=== PATIENT | female | born 1940 | race Caucasian/White ===

== ENCOUNTER 2022-04-14 16:12 | Emergency (ER) | payer MEDICARE ==
--- NOTE | 2022-04-14 17:02 | XRAY ---
Indication: Swollen legs. CHF. Known left shoulder fracture. Comparison: None Portable chest inflated and clear. Heart not enlarged. Bony thorax intact with osteopenia and mildly displaced left humeral neck fracture.
[2022-04-14 17:06] LABS: Absolute Neutrophil Ct (ANC) 4.29 x10^3/uL (1.4-6.9); Basophil (Absolute #) 0.05 x10^3/uL (0-0.4); Eosinophil % 4.3 % (0.00-5.0); Eosinophil (Absolute #) 0.29 x10^3/uL (0-0.5); Hematocrit 38.6 % (35-47); Hemoglobin 12.4 g/dL (12.0-16.0); Lymphocyte (Absolute #) 1.44 x10^3/uL (1.0-4.6); Lymphocytes % 21.2 % (24.0-44.0); Mean Cell Volume 98.7 fL (78-100); Mean Corpuscular Hemoglobin 31.7 pg (26-32); Mean Corpuscular Hgb Concent. 32.1 g/dL (32-36); Mean Platelet Volume 9.6 fL (7.5-11.0); Monocyte (Absolute #) 0.69 x10^3/uL (0.0-1.3); Monocytes % 10.2 % (0.0-12.0); Neutrophil % 63.3 % (36.0-66.0); Platelet Count 275 x10^3/uL (150-450); Red Blood Count 3.91 x10^6/uL (4.1-5.4); White Blood Count 6.8 x10^3/uL (4.0-10.5)
[2022-04-14 17:27] LABS: Potassium 3.9 mmol/L (3.5-5.1)
[2022-04-14 17:34] LABS: ALBUMIN 3.6 g/dL (3.5-5.0); ALKALINE PHOSPHATASE 103 U/L (38-126); BLOOD UREA NITROGEN 16 mg/dL (7-17); CHLORIDE 107 mmol/L (98-107); Calcium 8.7 mg/dL (8.4-10.2); Carbon Dioxide 25 mmol/L (22-30); EST GLOMERULAR FILTRATION RATE > 60.0 ML/MIN; Glucose 116 mg/dL (74-106); NT PRO BNP 477 pg/mL (0-1800); SGOT/AST 31 U/L (14-36); SGPT/ALT 32 U/L (0-35); SODIUM 139 mmol/L (137-145); Total Protein 6.6 g/dL (6.3-8.2)
--- NOTE | 2022-04-14 17:34 | XRAY ---
Indication: Leg swelling. Two-dimensional sonogram and color Doppler imaging of the major venous vessels of the left and right leg performed. Comparison: None No thrombus seen in the examined deep venous vessels of the left and right leg including greater saphenous vein. Veins demonstrate normal compressibility. Venous waveforms are normal with and without augmentation. Impression: Left and right legs negative for DVT. Comment: Preliminary report was given.
[2022-04-14 17:44] LABS: ANION GAP 10.9 MEQ/L (5-15)
[2022-04-14 18:27] VITALS: BP 148/65; PULSE 58; O2SAT 96
--- NOTE | 2022-04-14 18:31 | ERPHSYRPT ---
- History of Present Illness Time Seen by Provider: 04/14/22 16:18 Source: patient, family Exam Limitations: no limitations Patient Subjective Stated Complaint: BLE swelling Triage Nursing Assessment: Patient brought into ED per w/c and transferred to bed with assist of 1. Patient A+O X 2, disoriented to time. Patient's daughter reports increased swelling to BLE. Patient complains of left shoulder pain 5/10 , but has current fx to left shoulder. BLE noted to have 2+Pitting edema. Physician History: 81 years old female with multiple medical problems including TBI few years ago, dementia, atrial fibrillation on Xarelto, history of pulmonary embolism, frequent falls with recent fracture left shoulder presented in the ER with bilateral lower extremity swelling. Patient having swelling both lower extremity for quite some time which is lately getting worse and causing off-and-on dull aching pain. Family is worried about her having DVT. No fever or chills reported. Denies any fall or trauma to the legs. She is taking Lasix which does not seem working. Denies any chest pain palpitations or shortness of breath. Timing/Duration: week(s), gradual onset, worse Severity: moderate Modifying Factors: Improves With: nothing Associated Symptoms: denies symptoms Allergies/Adverse Reactions: Penicillins Allergy (Verified 04/14/22 16:18) Hx Influenza Vaccination/Date Given: No Hx Pneumococcal Vaccination/Date Given: No Immunizations Up to Date: Yes Travel Risk - International Travel Have you traveled outside of the country in past 3 weeks: No - Coronavirus Screening Are you exhibiting any of the following symptoms?: No Close contact with a COVID-19 positive Pt in past 14-21 Days: No - Vaccine Status Have you recieved a Covid-19 vaccination: Yes 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 - Vaccination Dates Date of 2cond Vaccination (if applicable): na - Review of Systems Constitutional: No Symptoms Eyes: No Symptoms Ears, Nose, & Throat: No Symptoms Respiratory: No Symptoms Cardiac: Edema Abdominal/Gastrointestinal: No Symptoms Genitourinary Symptoms: No Symptoms Musculoskeletal: No Symptoms Skin: No Symptoms Neurological: No Symptoms Psychological: No Symptoms Endocrine: No Symptoms Hematologic/Lymphatic: No Symptoms Immunological/Allergic: No Symptoms - Past Medical History Neurological History: Alzheimer's Disease, Dementia, Other ENT History: No Pertinent History Cardiac History: Arrhythmia, Deep Vein Thrombosis, Hypertension Respiratory History: No Pertinent History Endocrine Medical History: Hypothyroidism Musculoskeletal History: No Pertinent History GI Medical History: No Pertinent History History: No Pertinent History Psycho-Social History: No Pertinent History Female Reproductive Disorders: No Pertinent History Other Medical History: 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 frequent falls - Past Surgical History Past Surgical History: Yes Neuro Surgical History: No Pertinent History Cardiac: No Pertinent History Respiratory: No Pertinent History Gastrointestinal: No Pertinent History Genitourinary: No Pertinent History Musculoskeletal: Orthopedic Surgery Female Surgical History: Other Other Surgical History: Right ovary removed. Right leg - Social History Smoking Status: Never smoker Exposure to second hand smoke: No Drug Use: none Patient Lives Alone: No - Nursing Vital Signs Nursing Vital Signs: Initial Vital Signs Temperature 97.4 F 04/14/22 16:19 Pulse Rate 56 L 04/14/22 16:19 Respiratory Rate 18 04/14/22 16:19 Blood Pressure 139/65 04/14/22 16:19 O2 Sat by Pulse Oximetry 97 04/14/22 16:19 Pain Scale Pain Intensity 5 - Physical Exam General Appearance: no apparent distress, alert Eye Exam: PERRL/EOMI Ears, Nose, Throat Exam: normal ENT inspection, pharynx normal Neck Exam: normal inspection, full range of motion Respiratory Exam: normal breath sounds, lungs clear Cardiovascular Exam: regular rate/rhythm, normal heart sounds, edema (2+ pitting edema bilateral) Gastrointestinal/Abdomen Exam: soft, normal bowel sounds, No tenderness Back Exam: normal inspection, normal range of motion Neurologic Exam: alert, oriented x 3, cooperative, home performance consultant II-XII nml as tested Skin Exam: normal color SpO2 Interpretation: normal SpO2: 96 O2 Delivery: Room Air - Course EKG Interpreted by Me: RATE ([id number]), Sinus Scott, NORMAL AXIS, NORMAL INTERVALS, Q- wave Ordered Tests: Active Orders 24 hr Category Date Time Status CHEST 1 VIEW (PORTABLE) Stat Exams 04/14/22 16:37 Completed VENOUS BILATERAL EXTREMITY [US] Stat Exams 04/14/22 16:37 Completed CBC W DIFF Stat Lab 04/14/22 15:50 Completed CMP Stat Lab 04/14/22 15:50 Completed NT PRO BNP Stat Lab 04/14/22 15:50 Completed TROPONIN Q4H Lab 04/14/22 15:50 Completed Lab/Rad Data: Laboratory Result Diagrams 04/14/22 15:50 04/14/22 15:50 Laboratory Results 04/14/22 04/14/22 04/14/22 Range/Units 15:50 15:50 15:50 WBC 6.8 (4.0-10.5) x10^3/uL RBC 3.91 L (4.1-5.4) x10^6/uL Hgb 12.4 (12.0-16.0) g/dL Hct 38.6 (35-47) % MCV 98.7 (78-100) fL MCH 31.7 (26-32) pg MCHC 32.1 (32-36) g/dL RDW 15.0 H (11.5-14.0) % Plt Count 275 (150-450) x10^3/uL MPV 9.6 (7.5-11.0) fL Gran % 63.3 (36.0-66.0) % Immature Gran % (Auto) 0.3 (0.00-0.4) % Nucleat RBC Rel Count 0.0 (0.00-0.1) % Eos # (Auto) 0.29 (0-0.5) x10^3/uL Immature Gran # (Auto) 0.02 (0.00-0.03) x10^3u/L Absolute Lymphs (auto) 1.44 (1.0-4.6) x10^3/uL Absolute Monos (auto) 0.69 (0.0-1.3) x10^3/uL Absolute Nucleated RBC 0.00 (0.00-0.01) x10^3u/L Lymphocytes % 21.2 L (24.0-44.0) % Monocytes % 10.2 (0.0-12.0) % Eosinophils % 4.3 (0.00-5.0) % Basophils % 0.7 (0.0-0.4) % Absolute Granulocytes 4.29 (1.4-6.9) x10^3/uL Basophils # 0.05 (0-0.4) x10^3/uL Sodium 139 (137-145) mmol/L Potassium 3.9 (3.5-5.1) mmol/L Chloride 107 (98-107) mmol/L Carbon Dioxide 25 (22-30) mmol/L Anion Gap 10.9 (5-15) MEQ/L BUN 16 (7-17) mg/dL Creatinine 0.90 (0.52-1.04) mg/dL Estimated GFR > 60.0 ML/MIN Glucose 116 H (74-106) mg/dL Calcium 8.7 (8.4-10.2) mg/dL Total Bilirubin 0.50 (0.2-1.3) mg/dL AST 31 (14-36) U/L ALT 32 (0-35) U/L Alkaline Phosphatase 103 (38-126) U/L Troponin I < 0.012 (0.000-0.034) ng/mL NT-Pro-B Natriuret Pep 477 (0-1800) pg/mL Serum Total Protein 6.6 (6.3-8.2) g/dL Albumin 3.6 (3.5-5.0) g/dL - Progress Progress: unchanged Progress Note: 04/14/22 18:29 81 years old is evaluated for bilateral lower extremity swelling. Bilateral lower extremity duplex is negative for DVT. All her baseline work-up was grossly unremarkable. Swelling could be secondary to venous stasis, valve failure versus lymphedema versus CHF although BNP is normal, she is on Lasix, recommended compression stocking, leg elevation, taking Lasix twice a day for next few days and outpatient follow-up. Discussed signs symptoms of worsening needing return to ER which patient/family seem understanding. Counseled pt/family regarding: lab results, diagnosis, need for follow-up, rad results - Departure Departure Disposition: Home Clinical Impression: Bilateral lower extremity edema Condition: Stable Critical Care Time: No Referrals: AMY ROD [Primary Care Provider] - Follow Up with PCP/3 days Instructions: Dependent Edema (DC), Lymphedema (DC) Additional Instructions: Keep your legs elevated. Use compression stocking. Low-salt diet. Take an extra dose of Lasix every other day for next 1 week. Follow-up with primary care for reevaluation. Return to ER for increasing lower extremity swelling or if having chest pain palpitations or shortness of breath.
== END 2022-04-14 18:48 | disposition home or self-care (01) ==
LOC: ED 16:12
DX: R60.0 Localized edema (principal); M79.89 Other specified soft tissue disorders; I48.91 Unspecified atrial fibrillation; I10 Essential (primary) hypertension; Z79.01 Long term (current) use of anticoagulants; Z86.711 Personal history of pulmonary embolism; R29.6 Repeated falls
CPT/HCPCS: 36415; 71045; 80053; 83880; 84484; 85025; 93970; 99283

== ENCOUNTER 2022-05-17 18:34 | Observation (INO) | payer MEDICARE ==
[2022-05-17] MEDS ORDERED: Sodium Chloride 0.9% 1000 ML 1,000 ML IV SCH (19:15)
[2022-05-17] MEDS ORDERED: Sodium Chloride 0.9% 1000 ML 1,000 ML ONE (19:34)
[2022-05-17 20:15] LABS: Absolute Neutrophil Ct (ANC) 6.95 x10^3/uL (1.4-6.9); Basophil (Absolute #) 0.04 x10^3/uL (0-0.4); Eosinophil % 1.5 % (0.00-5.0); Eosinophil (Absolute #) 0.14 x10^3/uL (0-0.5); Hematocrit 39.2 % (35-47); Hemoglobin 12.8 g/dL (12.0-16.0); Lymphocyte (Absolute #) 1.39 x10^3/uL (1.0-4.6); Lymphocytes % 14.5 % (24.0-44.0); Mean Cell Volume 95.6 fL (78-100); Mean Corpuscular Hemoglobin 31.2 pg (26-32); Mean Corpuscular Hgb Concent. 32.7 g/dL (32-36); Mean Platelet Volume 9.8 fL (7.5-11.0); Monocyte (Absolute #) 1.02 x10^3/uL (0.0-1.3); Monocytes % 10.6 % (0.0-12.0); Neutrophil % 72.6 % (36.0-66.0); Platelet Count 225 x10^3/uL (150-450); Red Cell Distribution Width 14.1 % (11.5-14.0); White Blood Count 9.6 x10^3/uL (4.0-10.5)
--- NOTE | 2022-05-17 20:31 | ERPHSYRPT ---
- History of Present Illness Time Seen by Provider: 05/17/22 18:45 Source: patient Exam Limitations: no limitations Patient Subjective Stated Complaint: Pt states "I was at home and my legs got weak and I started to sweat like crazy and now I am here." Triage Nursing Assessment: Pt presented alert and oriented X3, ski pwd. pt able to speak in clear full sentences pt in no apparent respiratory distress. PT looking around and moving all extremities. Physician History: Patient is a 81-year-old female presents to emergency department for evaluation of generalized weakness. Patient dates she was at home and became acutely weak. No falls. No trauma. Patient states she became diaphoretic. Symptoms lasted several minutes. However upon arrival to our ED patient felt much better. Upon arrival to our ED patient functioning at her baseline. No associated chest pain. No shortness of breath. No trauma. Symptoms are mild to moderate in intensity. No specific worsening improving factors. Patient voices no other complaints or concerns at this time. Of note patient has a history of traumatic brain injury. This has left patient with considerable cognitive deficit per family Portions of this note were created with voice recognition technology. There may be grammatical, spelling, punctuation or sound alike errors Timing/Duration: today Severity: moderate Modifying Factors: Improves With: nothing Associated Symptoms: denies symptoms Allergies/Adverse Reactions: Penicillins Allergy (Verified 04/14/22 16:18) Home Medications: Amiodarone HCl 100 mg PO DAILY 05/17/22 [History] Carvedilol 12.5 mg [Coreg 12.5 mg] 12.5 mg PO BID 05/17/22 [History] Donepezil HCl 10 mg [Aricept 10 MG] 10 mg PO HS 05/17/22 [History] Escitalopram Oxalate 20 mg PO DAILY 05/17/22 [History] Furosemide 20 mg [Lasix 20 mg] 20 mg PO DAILY 05/17/22 [History] Levothyroxine Sodium [Levothyroxine] 125 mcg PO DAILY 05/17/22 [History] Memantine HCl 10 mg PO DAILY 05/17/22 [History] Rivaroxaban [Xarelto] 20 mg PO DAILY 05/17/22 [History] Hx Tetanus, Diphtheria Vaccination/Date Given: Yes Hx Influenza Vaccination/Date Given: No Hx Pneumococcal Vaccination/Date Given: No Immunizations Up to Date: Yes Travel Risk - International Travel Have you traveled outside of the country in past 3 weeks: No - Coronavirus Screening Are you exhibiting any of the following symptoms?: No Close contact with a COVID-19 positive Pt in past 14-21 Days: No - Vaccine Status Have you recieved a Covid-19 vaccination: Yes Puncher: Moderna - Vaccination Dates Date of 2cond Vaccination (if applicable): na - Review of Systems Constitutional: No Symptoms, No Fever, No Chills Eyes: No Symptoms Ears, Nose, & Throat: No Symptoms Respiratory: No Symptoms, No Cough, No Dyspnea Cardiac: No Symptoms, No Chest Pain, No Edema, No Syncope Abdominal/Gastrointestinal: No Symptoms, No Abdominal Pain, No Nausea, No Vomiting, No Diarrhea Genitourinary Symptoms: No Symptoms, No Dysuria Musculoskeletal: No Symptoms, No Back Pain, No Neck Pain Skin: No Symptoms, No Rash Neurological: No Symptoms, No Dizziness, No Focal Weakness, No Sensory Changes Psychological: No Symptoms Endocrine: No Symptoms Hematologic/Lymphatic: No Symptoms Immunological/Allergic: No Symptoms All Other Systems: Reviewed and Negative - Past Medical History Pertinent Past Medical History: Yes Neurological History: Alzheimer's Disease, Dementia, TIA, Other ENT History: No Pertinent History Cardiac History: Arrhythmia, Deep Vein Thrombosis, Hypertension Respiratory History: No Pertinent History Endocrine Medical History: Hypothyroidism Musculoskeletal History: No Pertinent History GI Medical History: No Pertinent History History: No Pertinent History Psycho-Social History: No Pertinent History Female Reproductive Disorders: No Pertinent History Other Medical History: 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 frequent falls - Past Surgical History Past Surgical History: Yes Neuro Surgical History: No Pertinent History Cardiac: No Pertinent History Respiratory: No Pertinent History Gastrointestinal: No Pertinent History Genitourinary: No Pertinent History Musculoskeletal: Orthopedic Surgery Female Surgical History: Other Other Surgical History: Right ovary removed. Right leg - Social History Smoking Status: Never smoker Exposure to second hand smoke: No Drug Use: none Patient Lives Alone: No - Nursing Vital Signs Nursing Vital Signs: Initial Vital Signs Temperature 97.3 F 05/17/22 18:36 Pulse Rate 58 L 05/17/22 18:36 Respiratory Rate 20 05/17/22 18:36 Blood Pressure 130/66 05/17/22 18:36 O2 Sat by Pulse Oximetry 96 05/17/22 18:36 Pain Scale Pain Intensity 0 - Physical Exam General Appearance: no apparent distress, alert Eye Exam: PERRL/EOMI, eyes nml inspection Ears, Nose, Throat Exam: normal ENT inspection, TMs normal, pharynx normal, moist mucous membranes Neck Exam: normal inspection, non-tender, supple, full range of motion Respiratory Exam: normal breath sounds, lungs clear, airway intact, No respiratory distress Cardiovascular Exam: regular rate/rhythm, normal heart sounds, normal peripheral pulses Gastrointestinal/Abdomen Exam: soft, normal bowel sounds, No tenderness, No mass Back Exam: normal inspection, normal range of motion, No CVA tenderness, No vertebral tenderness Extremity Exam: normal inspection, normal range of motion, pelvis stable Neurologic Exam: alert, oriented x 3, cooperative, normal mood/affect, nml cerebellar function, nml station & gait, sensation nml, No motor deficits Skin Exam: normal color, warm, dry, No rash Lymphatic Exam: No adenopathy SpO2 Interpretation: normal SpO2: 96 O2 Delivery: Room Air - Course Nursing assessment & vital signs reviewed: Yes EKG Interpreted by Me: RATE ([id number]) - CT Exams Head CT Interpretation: Tele-radiologist Report (Nonacute senile brain) Ordered Tests: Active Orders 24 hr Category Date Time Status HEAD WITHOUT CONTRAST [CT] Stat Exams 05/17/22 19:07 Taken CBC W DIFF Stat Lab 05/17/22 20:10 Completed CMP Stat Lab 05/17/22 20:10 Completed MAGNESIUM Stat Lab 05/17/22 20:10 Completed TSH, 3RD Generation Stat Lab 05/17/22 20:10 Completed UA W/RFX CULTURE Stat Lab 05/17/22 20:43 Completed Transfer Order Routine Transfer 05/17/22 Ordered Medication Summary Generic Name Dose Route Start Last Admin Trade Name Freq PRN Reason Stop Dose Admin Sodium Chloride 1,000 mls @ 75 mls/hr 05/17/22 19:15 05/17/22 19:36 Sodium Chloride 0.9% 1000 Ml IV 06/16/22 19:14 75 mls/hr .[id number] DONNA Administration Lab/Rad Data: Laboratory Result Diagrams 05/17/22 20:10 05/17/22 20:10 Laboratory Results 05/17/22 05/17/22 05/17/22 Range/Units 20:43 20:30 20:10 WBC (4.0-10.5) x10^3/uL RBC (4.1-5.4) x10^6/uL Hgb (12.0-16.0) g/dL Hct (35-47) % MCV (78-100) fL MCH (26-32) pg MCHC (32-36) g/dL RDW (11.5-14.0) % Plt Count (150-450) x10^3/uL MPV (7.5-11.0) fL Gran % (36.0-66.0) % Immature Gran % (Auto) (0.00-0.4) % Nucleat RBC Rel Count (0.00-0.1) % Eos # (Auto) (0-0.5) x10^3/uL Immature Gran # (Auto) (0.00-0.03) x10^3u/L Absolute Lymphs (auto) (1.0-4.6) x10^3/uL Absolute Monos (auto) (0.0-1.3) x10^3/uL Absolute Nucleated RBC (0.00-0.01) x10^3u/L Lymphocytes % (24.0-44.0) % Monocytes % (0.0-12.0) % Eosinophils % (0.00-5.0) % Basophils % (0.0-0.4) % Absolute Granulocytes (1.4-6.9) x10^3/uL Basophils # (0-0.4) x10^3/uL Sodium 134 L (137-145) mmol/L Potassium 3.9 (3.5-5.1) mmol/L Chloride 104 (98-107) mmol/L Carbon Dioxide 23 (22-30) mmol/L Anion Gap 10.9 (5-15) MEQ/L BUN 13 (7-17) mg/dL Creatinine 0.79 (0.52-1.04) mg/dL Estimated GFR > 60.0 ML/MIN Glucose 106 (74-106) mg/dL Calcium 8.5 (8.4-10.2) mg/dL Magnesium 2.1 (1.6-2.3) mg/dL Total Bilirubin 0.60 (0.2-1.3) mg/dL AST 27 (14-36) U/L ALT 27 (0-35) U/L Alkaline Phosphatase 97 (38-126) U/L Serum Total Protein 6.7 (6.3-8.2) g/dL Albumin 3.6 (3.5-5.0) g/dL TSH 3rd Generation 1.980 (0.47-4.68) mIU/L Urinalys Dipstick Clnc MAIN LAB Urine Color YELLOW (YELLOW) Urine Appearance CLEAR (CLEAR) Urine pH 7.0 (5-6) Ur Specific [place] 1.015 (1.005-1.025) POC Urine Protein Conf NEGATIVE (Negative) Urine Ketones NEGATIVE (NEGATIVE) Urine Nitrite NEGATIVE (NEGATIVE) Urine Bilirubin NEGATIVE (NEGATIVE) Urine Urobilinogen 0.2 (0-1) mg/dL Urine Leukocytes NEGATIVE (NEGATIVE) Urine WBC (Auto) 0-2 (0-5) /HPF Urine RBC (Auto) NONE (0-2) /HPF U Epithel Cells (Auto) RARE (FEW) /HPF Urine Bacteria (Auto) NONE (NEGATIVE) /HPF Urine RBC NEGATIVE (0-5) Gary/ul Ur Culture Indicated? NO Urine Glucose NEGATIVE (NEGATIVE) mg/dL Influenza Type A Ag NEGATIVE (NEGATIVE) Influenza Type B Ag NEGATIVE (NEGATIVE) RSV (PCR) NEGATIVE (Negative) SARS-CoV-2 (PCR) NEGATIVE (NEGATIVE) 05/17/22 Range/Units 20:10 WBC 9.6 (4.0-10.5) x10^3/uL RBC 4.10 (4.1-5.4) x10^6/uL Hgb 12.8 (12.0-16.0) g/dL Hct 39.2 (35-47) % MCV 95.6 (78-100) fL MCH 31.2 (26-32) pg MCHC 32.7 (32-36) g/dL RDW 14.1 H (11.5-14.0) % Plt Count 225 (150-450) x10^3/uL MPV 9.8 (7.5-11.0) fL Gran % 72.6 H (36.0-66.0) % Immature Gran % (Auto) 0.4 (0.00-0.4) % Nucleat RBC Rel Count 0.0 (0.00-0.1) % Eos # (Auto) 0.14 (0-0.5) x10^3/uL Immature Gran # (Auto) 0.04 H (0.00-0.03) x10^3u/L Absolute Lymphs (auto) 1.39 (1.0-4.6) x10^3/uL Absolute Monos (auto) 1.02 (0.0-1.3) x10^3/uL Absolute Nucleated RBC 0.00 (0.00-0.01) x10^3u/L Lymphocytes % 14.5 L (24.0-44.0) % Monocytes % 10.6 (0.0-12.0) % Eosinophils % 1.5 (0.00-5.0) % Basophils % 0.4 (0.0-0.4) % Absolute Granulocytes 6.95 H (1.4-6.9) x10^3/uL Basophils # 0.04 (0-0.4) x10^3/uL Sodium (137-145) mmol/L Potassium (3.5-5.1) mmol/L Chloride (98-107) mmol/L Carbon Dioxide (22-30) mmol/L Anion Gap (5-15) MEQ/L BUN (7-17) mg/dL Creatinine (0.52-1.04) mg/dL Estimated GFR ML/MIN Glucose (74-106) mg/dL Calcium (8.4-10.2) mg/dL Magnesium (1.6-2.3) mg/dL Total Bilirubin (0.2-1.3) mg/dL AST (14-36) U/L ALT (0-35) U/L Alkaline Phosphatase (38-126) U/L Serum Total Protein (6.3-8.2) g/dL Albumin (3.5-5.0) g/dL TSH 3rd Generation (0.47-4.68) mIU/L Urinalys Dipstick Clnc Urine Color (YELLOW) Urine Appearance (CLEAR) Urine pH (5-6) Ur Specific [place] (1.005-1.025) POC Urine Protein Conf (Negative) Urine Ketones (NEGATIVE) Urine Nitrite (NEGATIVE) Urine Bilirubin (NEGATIVE) Urine Urobilinogen (0-1) mg/dL Urine Leukocytes (NEGATIVE) Urine WBC (Auto) (0-5) /HPF Urine RBC (Auto) (0-2) /HPF U Epithel Cells (Auto) (FEW) /HPF Urine Bacteria (Auto) (NEGATIVE) /HPF Urine RBC (0-5) Gary/ul Ur Culture Indicated? Urine Glucose (NEGATIVE) mg/dL Influenza Type A Ag (NEGATIVE) Influenza Type B Ag (NEGATIVE) RSV (PCR) (Negative) SARS-CoV-2 (PCR) (NEGATIVE) - Progress Progress: improved Progress Note: Patient reassessed. Neurologically patient at her baseline. CT head negative. Work-up essentially unremarkable. In light of patient's risk factors patient will be admitted to rule out TIA. Patient is on Xarelto. IV fluids infusing. Case discussed with Dr. Webber who accepts admission to observation. Plan of care discussed with patient. She agrees to admission at [facility] for further evaluation and treatment. Portions of this note were created with voice recognition technology. There may be grammatical, spelling, punctuation or sound alike errors 05/17/22 22:50 Counseled pt/family regarding: lab results, diagnosis, rad results - Departure Departure Disposition: Observation Clinical Impression: TIA (transient ischemic attack), Generalized weakness Condition: Stable Critical Care Time: No Referrals: AMY ROD [Primary Care Provider] - Follow up/PCP as directed
[2022-05-17 21:04] LABS: ALBUMIN 3.6 g/dL (3.5-5.0); ALKALINE PHOSPHATASE 97 U/L (38-126); ANION GAP 10.9 MEQ/L (5-15); BLOOD UREA NITROGEN 13 mg/dL (7-17); CHLORIDE 104 mmol/L (98-107); Calcium 8.5 mg/dL (8.4-10.2); Carbon Dioxide 23 mmol/L (22-30); Creatinine 1 0.79 mg/dL (0.52-1.04); EST GLOMERULAR FILTRATION RATE > 60.0 ML/MIN; Glucose 106 mg/dL (74-106); MAGNESIUM 2.1 mg/dL (1.6-2.3); Potassium 3.9 mmol/L (3.5-5.1); SGOT/AST 27 U/L (14-36); SGPT/ALT 27 U/L (0-35); SODIUM 134 mmol/L (137-145); Total Protein 6.7 g/dL (6.3-8.2)
[2022-05-17 21:14] LABS: INFLUENZA A NEGATIVE (NEGATIVE); INFLUENZA B NEGATIVE (NEGATIVE); RESPIRATORY SYNCTIAL VIRUS NEGATIVE (Negative); SARS-CoV-2 Xpert Express NEGATIVE (NEGATIVE)
[2022-05-17 21:15] LABS: Appearance CLEAR (CLEAR); Bilirubin NEGATIVE (NEGATIVE); Dipstick done @ ? MAIN LAB; Glucose NEGATIVE (NEGATIVE); Ketones NEGATIVE (NEGATIVE); Nitrite NEGATIVE (NEGATIVE); Protein,Urine Dip NEGATIVE (Negative); RBC NEGATIVE Ery/ul (0-5); Specific Gravity 1.015 (1.005-1.025); Urobilinogen 0.2 mg/dL (0-1)
[2022-05-17 21:24] LABS: Epithelial Cells RARE /HPF (FEW); Urine Cultured Indicated? NO; WBC 0-2 /HPF (0-5)
[2022-05-18] MEDS ORDERED: Senokot-S Tablet PO PRN (00:43)
[2022-05-18] MEDS ORDERED: MAALOX ES 30 ML UNIT DOSE PO PRN (00:43)
[2022-05-18] MEDS ORDERED: Sodium Chloride 0.9% 500 ML 500 ML IV SCH (00:43)
[2022-05-18] MEDS ORDERED: MILK OF MAGNESIA 30 ML PO PRN (00:43)
[2022-05-18] MEDS ORDERED: TYLENOL 325 MG PO PRN (00:43)
[2022-05-18] MEDS ORDERED: COREG 12.5 MG PO ONE (02:00)
[2022-05-18] MEDS ORDERED: Namenda 5 MG PO ONE (02:00)
[2022-05-18] MEDS: Sodium Chloride 0.9% 1000 ML 1,000 ML IV SCH (07:52)
--- NOTE | 2022-05-18 08:38 | XRAY ---
Indication: Acute mental status change. Weakness and dizziness. Multiple contiguous images obtained through the head without contrast. Comparison: None Age-appropriate global atrophy and moderate periventricular degenerative micro-ischemia bilaterally. Left and right external capsule demonstrates remote lacunar infarcts. No acute intracranial hemorrhage, abnormal extra-axial fluid collection, or mass effect. Fourth ventricle is midline without hydrocephalus. Bony calvarium intact. Visualized paranasal sinuses and mastoid air cells are clear. Impression: Nonacute senile brain with remote bilateral external capsule lacunar infarcts.
--- NOTE | 2022-05-18 11:20 | PCM.HP ---
History of Present Illness - Chief Complaint Chief Complaint: TIA History of Present Illness: is a delightful 81 year old female pt of Dr. Reich with hx TBI (with cognitive deficit), hx DVT, arrhythmia, HTN, hypothyroidism, and frequent falls who came in through ER with TIA. Hx is per pt, who is a somewhat difficult historian due to some memory deficits. per pt, she has been largely bedridden since a fall 4 mo ago (has frequent falls due to poor balance after accident about 4 yrs ago). Was getting off the toilet with assistance of her granddaughter, and she couldn't get her knees to "lock in" and sat down. [place] really hot. ER noted she had been diaphoretic. R arm post-vaccination(Covid) site was very painful at the time. She also felt disoriented, which is new for her. She was brought to ER where she appeared back to baseline. CT head was nonacute (remote bilat external capsule lacunar infarcts). Labs nonacute. Troponins neg x 2 so far. Chol 219, HDL 44 and LDL 143. 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 She just moved to [place] recently to live with her daughter (is her god daughter) and granddaughter (who is a health aide of some kind). Has [facility], per hospital staff. - Review of Systems Respiratory: Cough Cardiac: Edema (LE bilat, chronic) Genitourinary Symptoms: Incontinence (urinary, since her last fall) Neurological: Other (poor balance causing falls) All Other Systems: Reviewed and Negative (Per pt, but she does have some cognitive difficulties and is not oriented today.) Medications & Allergies Home Medications: Home Medication List Amiodarone HCl 100 mg PO DAILY 05/17/22 [History Confirmed 05/18/22] Carvedilol 12.5 mg [Coreg 12.5 mg] 12.5 mg PO BID 05/17/22 [History Confirmed 05/18/22] Escitalopram Oxalate 20 mg PO DAILY 05/17/22 [History Confirmed 05/18/22] Furosemide 20 mg [Lasix 20 mg] 20 mg PO DAILY PRN PRN 05/17/22 [History Confirmed 05/18/22] Levothyroxine Sodium [Levothyroxine] 125 mcg PO DAILY 05/17/22 [History Confirmed 05/18/22] Memantine HCl 10 mg PO BID 05/17/22 [History Confirmed 05/18/22] Rivaroxaban [Xarelto] 20 mg PO DAILY 05/17/22 [History Confirmed 05/18/22] Donepezil HCl [Aricept] 5 mg PO DAILY 05/18/22 [History Confirmed 05/18/22] Famotidine 20 mg PO DAILY 05/18/22 [History Confirmed 05/18/22] Allergies/Adverse Reactions: Allergies Allergy/AdvReac Type Severity Reaction Status Date / Time Penicillins Allergy Verified 05/18/22 00:57 - Past Medical History Past Medical History: Yes Neurological History: Alzheimer's Disease, Dementia, Other ENT History: No Pertinent History Cardiac History: Arrhythmia, Deep Vein Thrombosis, Hypertension Respiratory History: No Pertinent History Endocrine Medical History: Hypothyroidism Musculoskelatal History: Fractures GI Medical History: No Pertinent History History: No Pertinent History Pyscho-Social History: No Pertinent History Reproductive Disorders: No Pertinent History Comment: TBI with 42% cognitive loss , afib, frequent falls, left shoulder fx - Female History Are you now?: No - Past Surgical History Past Surgical History: Yes Neuro Surgical History: No Pertinent History Cardiac History: No Pertinent History Respiratory Surgery: No Pertinent History GI Surgical History: No Pertinent History Genitourinary Surgical Hx: No Pertinent History Musculskeletal Surgical Hx: Orthopedic Surgery Female Surgical History: Other Other Surgical History: Right ovary removed. Right leg - Social History Smoking Status: Never smoker Exposure to second hand smoke: No Alcohol: None Drug Use: none - Physical Exam Vital Signs: Vital Signs - 24 hr Temp Pulse Resp BP Pulse Ox 05/18/22 07:57 96 05/18/22 07:52 97.3 F 54 L 16 128/60 92 L 05/18/22 04:00 97.5 F 63 18 138/63 94 L 05/18/22 00:59 97.3 F 65 18 119/58 94 L 05/18/22 00:06 61 16 124/64 93 L 05/17/22 23:07 62 16 148/59 96 05/17/22 22:56 96 05/17/22 22:00 58 L 16 151/69 94 L 05/17/22 21:00 59 L 16 94 L 05/17/22 20:35 60 14 118/52 93 L 05/17/22 18:36 97.3 F 58 L 20 130/66 96 General Appearance: no apparent distress, other (oriented to self only; doesn't remember where she is, and month is June 2022.) Neurologic Exam: alert, cooperative, disoriented, other (CN II-XII intact bilat. strength 5/5 RUE, bilat LE. 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 Finger-nose wnl bilat.) Eye Exam: eyes nml inspection Ears, Nose, Throat Exam: dry mucous membranes Neck Exam: normal inspection Respiratory Exam: normal breath sounds, lungs clear, No crackles/rales, No rhonchi, No wheezing Cardiovascular Exam: regular rate/rhythm, normal heart sounds, No murmur, No edema Gastrointestinal/Abdomen Exam: soft, normal bowel sounds, No tenderness, No distention, No mass, No guarding, No rebound Back Exam: normal inspection, No rash Extremity Exam: normal inspection, No pedal edema, No swelling, No tenderness Skin Exam: normal color, warm, dry, No rash Results - Labs Lab/Micro Results: Lab Results-Last 24 Hours 05/17/22 05/17/22 05/17/22 Range/Units 20:10 20:10 20:30 WBC 9.6 (4.0-10.5) x10^3/uL RBC 4.10 (4.1-5.4) x10^6/uL Hgb 12.8 (12.0-16.0) g/dL Hct 39.2 (35-47) % MCV 95.6 (78-100) fL MCH 31.2 (26-32) pg MCHC 32.7 (32-36) g/dL RDW 14.1 H (11.5-14.0) % Plt Count 225 (150-450) x10^3/uL MPV 9.8 (7.5-11.0) fL Gran % 72.6 H (36.0-66.0) % Immature Gran % (Auto) 0.4 (0.00-0.4) % Nucleat RBC Rel Count 0.0 (0.00-0.1) % Eos # (Auto) 0.14 (0-0.5) x10^3/uL Immature Gran # (Auto) 0.04 H (0.00-0.03) x10^3u/L Absolute Lymphs (auto) 1.39 (1.0-4.6) x10^3/uL Absolute Monos (auto) 1.02 (0.0-1.3) x10^3/uL Absolute Nucleated RBC 0.00 (0.00-0.01) x10^3u/L Lymphocytes % 14.5 L (24.0-44.0) % Monocytes % 10.6 (0.0-12.0) % Eosinophils % 1.5 (0.00-5.0) % Basophils % 0.4 (0.0-0.4) % Absolute Granulocytes 6.95 H (1.4-6.9) x10^3/uL Basophils # 0.04 (0-0.4) x10^3/uL Sodium 134 L (137-145) mmol/L Potassium 3.9 (3.5-5.1) mmol/L Chloride 104 (98-107) mmol/L Carbon Dioxide 23 (22-30) mmol/L Anion Gap 10.9 (5-15) MEQ/L BUN 13 (7-17) mg/dL Creatinine 0.79 (0.52-1.04) mg/dL Estimated GFR > 60.0 ML/MIN Glucose 106 (74-106) mg/dL Calcium 8.5 (8.4-10.2) mg/dL Magnesium 2.1 (1.6-2.3) mg/dL Total Bilirubin 0.60 (0.2-1.3) mg/dL AST 27 (14-36) U/L ALT 27 (0-35) U/L Alkaline Phosphatase 97 (38-126) U/L Troponin I (0.000-0.034) ng/mL Serum Total Protein 6.7 (6.3-8.2) g/dL Albumin 3.6 (3.5-5.0) g/dL Triglycerides (30-150) mg/dL Cholesterol (50-200) mg/dL LDL Cholesterol (30-100) mg/dL HDL Cholesterol (40-60) mg/dL Heart Disease Risk Ratio TSH 3rd Generation 1.980 (0.47-4.68) mIU/L Urinalys Dipstick Clnc Urine Color (YELLOW) Urine Appearance (CLEAR) Urine pH (5-6) Ur Specific [place] (1.005-1.025) POC Urine Protein Conf (Negative) Urine Ketones (NEGATIVE) Urine Nitrite (NEGATIVE) Urine Bilirubin (NEGATIVE) Urine Urobilinogen (0-1) mg/dL Urine Leukocytes (NEGATIVE) Urine WBC (Auto) (0-5) /HPF Urine RBC (Auto) (0-2) /HPF U Epithel Cells (Auto) (FEW) /HPF Urine Bacteria (Auto) (NEGATIVE) /HPF Urine RBC (0-5) Gary/ul Ur Culture Indicated? Urine Glucose (NEGATIVE) mg/dL Influenza Type A Ag NEGATIVE (NEGATIVE) Influenza Type B Ag NEGATIVE (NEGATIVE) RSV (PCR) NEGATIVE (Negative) SARS-CoV-2 (PCR) NEGATIVE (NEGATIVE) 05/17/22 05/18/22 05/18/22 Range/Units 20:43 00:00 03:23 WBC (4.0-10.5) x10^3/uL RBC (4.1-5.4) x10^6/uL Hgb (12.0-16.0) g/dL Hct (35-47) % MCV (78-100) fL MCH (26-32) pg MCHC (32-36) g/dL RDW (11.5-14.0) % Plt Count (150-450) x10^3/uL MPV (7.5-11.0) fL Gran % (36.0-66.0) % Immature Gran % (Auto) (0.00-0.4) % Nucleat RBC Rel Count (0.00-0.1) % Eos # (Auto) (0-0.5) x10^3/uL Immature Gran # (Auto) (0.00-0.03) x10^3u/L Absolute Lymphs (auto) (1.0-4.6) x10^3/uL Absolute Monos (auto) (0.0-1.3) x10^3/uL Absolute Nucleated RBC (0.00-0.01) x10^3u/L Lymphocytes % (24.0-44.0) % Monocytes % (0.0-12.0) % Eosinophils % (0.00-5.0) % Basophils % (0.0-0.4) % Absolute Granulocytes (1.4-6.9) x10^3/uL Basophils # (0-0.4) x10^3/uL Sodium (137-145) mmol/L Potassium (3.5-5.1) mmol/L Chloride (98-107) mmol/L Carbon Dioxide (22-30) mmol/L Anion Gap (5-15) MEQ/L BUN (7-17) mg/dL Creatinine (0.52-1.04) mg/dL Estimated GFR ML/MIN Glucose (74-106) mg/dL Calcium (8.4-10.2) mg/dL Magnesium (1.6-2.3) mg/dL Total Bilirubin (0.2-1.3) mg/dL AST (14-36) U/L ALT (0-35) U/L Alkaline Phosphatase (38-126) U/L Troponin I < 0.012 (0.000-0.034) ng/mL Serum Total Protein (6.3-8.2) g/dL Albumin (3.5-5.0) g/dL Triglycerides 147 (30-150) mg/dL Cholesterol 219 H (50-200) mg/dL LDL Cholesterol 143 H (30-100) mg/dL HDL Cholesterol 44 (40-60) mg/dL Heart Disease Risk Ratio 5.0 TSH 3rd Generation (0.47-4.68) mIU/L Urinalys Dipstick Clnc MAIN LAB Urine Color YELLOW (YELLOW) Urine Appearance CLEAR (CLEAR) Urine pH 7.0 (5-6) Ur Specific [place] 1.015 (1.005-1.025) POC Urine Protein Conf NEGATIVE (Negative) Urine Ketones NEGATIVE (NEGATIVE) Urine Nitrite NEGATIVE (NEGATIVE) Urine Bilirubin NEGATIVE (NEGATIVE) Urine Urobilinogen 0.2 (0-1) mg/dL Urine Leukocytes NEGATIVE (NEGATIVE) Urine WBC (Auto) 0-2 (0-5) /HPF Urine RBC (Auto) NONE (0-2) /HPF U Epithel Cells (Auto) RARE (FEW) /HPF Urine Bacteria (Auto) NONE (NEGATIVE) /HPF Urine RBC NEGATIVE (0-5) Gary/ul Ur Culture Indicated? NO Urine Glucose NEGATIVE (NEGATIVE) mg/dL Influenza Type A Ag (NEGATIVE) Influenza Type B Ag (NEGATIVE) RSV (PCR) (Negative) SARS-CoV-2 (PCR) (NEGATIVE) 05/18/22 Range/Units 03:23 WBC (4.0-10.5) x10^3/uL RBC (4.1-5.4) x10^6/uL Hgb (12.0-16.0) g/dL Hct (35-47) % MCV (78-100) fL MCH (26-32) pg MCHC (32-36) g/dL RDW (11.5-14.0) % Plt Count (150-450) x10^3/uL MPV (7.5-11.0) fL Gran % (36.0-66.0) % Immature Gran % (Auto) (0.00-0.4) % Nucleat RBC Rel Count (0.00-0.1) % Eos # (Auto) (0-0.5) x10^3/uL Immature Gran # (Auto) (0.00-0.03) x10^3u/L Absolute Lymphs (auto) (1.0-4.6) x10^3/uL Absolute Monos (auto) (0.0-1.3) x10^3/uL Absolute Nucleated RBC (0.00-0.01) x10^3u/L Lymphocytes % (24.0-44.0) % Monocytes % (0.0-12.0) % Eosinophils % (0.00-5.0) % Basophils % (0.0-0.4) % Absolute Granulocytes (1.4-6.9) x10^3/uL Basophils # (0-0.4) x10^3/uL Sodium (137-145) mmol/L Potassium (3.5-5.1) mmol/L Chloride (98-107) mmol/L Carbon Dioxide (22-30) mmol/L Anion Gap (5-15) MEQ/L BUN (7-17) mg/dL Creatinine (0.52-1.04) mg/dL Estimated GFR ML/MIN Glucose (74-106) mg/dL Calcium (8.4-10.2) mg/dL Magnesium (1.6-2.3) mg/dL Total Bilirubin (0.2-1.3) mg/dL AST (14-36) U/L ALT (0-35) U/L Alkaline Phosphatase (38-126) U/L Troponin I < 0.012 (0.000-0.034) ng/mL Serum Total Protein (6.3-8.2) g/dL Albumin (3.5-5.0) g/dL Triglycerides (30-150) mg/dL Cholesterol (50-200) mg/dL LDL Cholesterol (30-100) mg/dL HDL Cholesterol (40-60) mg/dL Heart Disease Risk Ratio TSH 3rd Generation (0.47-4.68) mIU/L Urinalys Dipstick Clnc Urine Color (YELLOW) Urine Appearance (CLEAR) Urine pH (5-6) Ur Specific [place] (1.005-1.025) POC Urine Protein Conf (Negative) Urine Ketones (NEGATIVE) Urine Nitrite (NEGATIVE) Urine Bilirubin (NEGATIVE) Urine Urobilinogen (0-1) mg/dL Urine Leukocytes (NEGATIVE) Urine WBC (Auto) (0-5) /HPF Urine RBC (Auto) (0-2) /HPF U Epithel Cells (Auto) (FEW) /HPF Urine Bacteria (Auto) (NEGATIVE) /HPF Urine RBC (0-5) Gary/ul Ur Culture Indicated? Urine Glucose (NEGATIVE) mg/dL Influenza Type A Ag (NEGATIVE) Influenza Type B Ag (NEGATIVE) RSV (PCR) (Negative) SARS-CoV-2 (PCR) (NEGATIVE) - Radiology Impressions Radiology Exams & Impressions: Radiology Procedures Category Date Time Status HEAD WITHOUT CONTRAST [CT] Stat Exams 05/17/22 19:07 Completed MRI BRAIN W & W/O CONTRAST [MRI] Routine Exams 05/18/22 10:58 Ordered - Other Procedures and Tests Respiratory Therapy 05/19/22 05:00 EKG DAILY 05/20/22 05:00 EKG DAILY 05/21/22 05:00 EKG DAILY Assessment/Plan (1) TIA (transient ischemic attack) Current Visit: Yes Status: Acute Assessment & Plan: Likely. Her neuro exam was good aside from some weakness on the LUE. MRI brain. Code(s): G45.9 - TRANSIENT CEREBRAL ISCHEMIC ATTACK, UNSPECIFIED (2) Generalized weakness Current Visit: Yes Status: Acute Assessment & Plan: PT to consult. I am most concerned about how she will function at home after discharge. Not likely to leave before tomorrow. Code(s): R53.1 - WEAKNESS (3) Frequent falls Current Visit: Yes Status: Chronic Code(s): R29.6 - REPEATED FALLS (4) Traumatic brain injury Current Visit: Yes Status: Chronic Qualifiers: Encounter type: sequela Loss of consciousness presence/duration: with LOC of unspecified duration Qualified Code(s): S06.9X9S - Unspecified intracranial injury with loss of consciousness of unspecified duration, sequela Assessment & Plan: Hx of. has trouble word finding and memory issues. Code(s): S06.9XAA -
--- NOTE | 2022-05-18 13:15 | XRAY ---
Indication: Difficulty speaking and walking. TIA. Sagittal, coronal, and axial MRI brain performed using pre and post T1, T2, FLAIR, diffusion, and ADC sequences. 16 cc Dotarem contrast used. Comparison: None Age-appropriate global atrophy and moderate periventricular degenerative micro-ischemia signal bilaterally. No acute intracranial hemorrhage, abnormal extra-axial fluid collection, or mass effect. Diffusion images are negative for restricted signal. Following gadolinium, there is no abnormal enhancing intra or extra-axial mass. Fourth ventricle is midline without hydrocephalus. 7/8 cranial nerve complex bilaterally symmetric. Normal flow void signal within the major intracerebral circulation. Normal appearing craniocervical junction and sella turcica. Visualized paranasal sinuses are clear. Impression: 1. Global atrophy and degenerative micro-ischemia within normal limits for patient's age. 2. Remaining MRI brain with contrast exam is negative.
[2022-05-18] MEDS ORDERED: LASIX 20 MG PO PRN (13:42)
[2022-05-18] MEDS: SYNTHROID 125 MCG PO SCH (14:02)
[2022-05-18] MEDS: Namenda 5 MG PO SCH ×2 (15:17→23:05)
[2022-05-18] MEDS: Cordarone 200 MG PO SCH (15:17)
[2022-05-18] MEDS: XARELTO 10 MG TABLET PO SCH (15:17)
[2022-05-18] MEDS: Aricept 10 MG PO SCH (15:17)
[2022-05-18] MEDS: Pepcid 20 MG PO SCH (15:17)
[2022-05-18] MEDS: Lexapro PO SCH (15:17)
[2022-05-18] MEDS: COREG 12.5 MG PO SCH ×2 (15:18→23:05)
[2022-05-18 16:47] VITALS: O2SAT 94
[2022-05-18] MEDS ORDERED: NON-FORMULARY ITEM (Memantine Hcl [Memantine Hcl] 10 MG Tablet) PO SCH (22:00)
[2022-05-19] MEDS: Sodium Chloride 0.9% 1000 ML 1,000 ML IV SCH (00:28)
[2022-05-19 07:34] VITALS: BP 143/67; PULSE 58
--- NOTE | 2022-05-19 08:22 | PCM.DS ---
Discharge Summary Date of Admission: 05/18/22 00:36 Admitting Physician: VISHAL MOSER Primary Care Provider: AMY ROD Allergies Allergies Penicillins Allergy (Verified 05/18/22 00:57) Hospital Summary - Hospital Course Hospital Course: is a delightful 81 year old female pt of Dr. Rod with hx TBI (with cognitive deficit), hx DVT, arrhythmia, HTN, hypothyroidism, and frequent falls who came in through ER with TIA. Hx is per pt, who is a somewhat difficult historian due to some memory deficits. per pt, she has been largely bedridden since a fall 4 mo ago (has frequent falls due to poor balance after accident about 4 yrs ago). Was getting off the toilet with assistance of her granddaughter, and she couldn't get her knees to "lock in" and sat down. [place] really hot. ER noted she had been diaphoretic. R arm post-vaccination(Covid) site was very painful at the time. She also felt disoriented, which is new for her. She was brought to ER where she appeared back to baseline. CT head was nonacute (remote bilat external capsule lacunar infarcts). Labs nonacute. Troponins neg x 3. Chol 219, HDL 44 and LDL 143. MRI head nonacute. PT saw the pt and thought she's fine to go home as long as someone is with her all the time, which is the case. ST recommended further speech therapy after this TIA. - Vitals & Intake/Output Vital Signs: Vital Signs Temperature 96.9 F 05/19/22 07:34 Pulse Rate 58 L 05/19/22 07:34 Respiratory Rate 18 05/19/22 07:34 Blood Pressure 143/67 05/19/22 07:34 O2 Sat by Pulse Oximetry 94 L 05/19/22 07:34 Intake & Output: Intake & Output 05/16/22 05/17/22 05/18/22 05/19/22 11:59 11:59 11:59 11:59 Intake Total 526 1109 Output Total 150 750 Balance 376 359 Weight 89.3 kg - Lab Result Diagrams: 05/17/22 20:10 05/17/22 20:10 - Radiology Exams Ordered Rad Exams-Entire Visit: Radiology Procedures Category Date Time Status HEAD WITHOUT CONTRAST [CT] Stat Exams 05/17/22 19:07 Completed MRI BRAIN W & W/O CONTRAST [MRI] Routine Exams 05/18/22 10:58 Completed - Procedures and Test Procedures and Tests throughout Hospitalization: Therapy Orders & Screens 05/18/22 00:43 EKG [id number],QAMX3,PRN Comment: 05/18/22 05:00 EKG DAILY Comment: Diagnosis: TIA 05/18/22 10:00 ST Screen per Nursing Assess ONCE Comment: Protocol Order Physician Instructions: Greater than [address] Admission Screening Reason For Exam: Triggered on Admission Diagnosis: TIA CVA/Dyshpagia/Aphasia: Yes Cognitive Deficits: Yes Dehydration/Nutrition Deficit: No Reflux: No Oral-Motor Difficulties: No Pneumonia: No Snf Resident: No Total Points: 8 05/18/22 10:57 PT Eval & Treat (MD Order) ONCE Reason for Eval:: TIA Diagnosis: TIA ST Eval & Treat (MD Order) .as ordered Comment: Physician Instructions: Reason For Exam: Evaluate: Yes Treat: Yes Reason for Eval: TIA Diagnosis: TIA 05/19/22 05:00 EKG DAILY Comment: Diagnosis: TIA 05/20/22 05:00 EKG DAILY Comment: Diagnosis: TIA 05/21/22 05:00 EKG DAILY Comment: Diagnosis: TIA Discharge Exam General Appearance: no apparent distress, alert Neurologic Exam: cooperative, other (memory issues as before, which pt says is her normal) Eye Exam: eyes nml inspection Ears, Nose, Throat Exam: moist mucous membranes Neck Exam: normal inspection Respiratory Exam: normal breath sounds, lungs clear, No crackles/rales, No rhonchi, No wheezing Cardiovascular Exam: regular rate/rhythm, normal heart sounds, No murmur Gastrointestinal/Abdomen Exam: soft, normal bowel sounds, No tenderness, No distention, No mass, No guarding, No rebound Extremity Exam: normal inspection, No pedal edema, No swelling Skin Exam: normal color, warm, dry, No rash Final Diagnosis/Problem List - Final Discharge Diagnosis/Problem (1) TIA (transient ischemic attack) Current Visit: Yes Status: Acute Assessment & Plan: She is back to baseline with respect to PT, but would benefit from ST via home healthcare. Code(s): G45.9 - TRANSIENT CEREBRAL ISCHEMIC ATTACK, UNSPECIFIED (2) Generalized weakness Current Visit: Yes Status: Chronic Code(s): R53.1 - WEAKNESS (3) Frequent falls Current Visit: Yes Status: Chronic Code(s): R29.6 - REPEATED FALLS (4) Traumatic brain injury Current Visit: Yes Status: Chronic Code(s): S06.9XAA - - Discharge Disposition: Home, Self-Care Condition: Good Prescriptions: Continue Carvedilol 12.5 mg [Coreg 12.5 mg] 12.5 mg PO BID Furosemide 20 mg [Lasix 20 mg] 20 mg PO DAILY PRN PRN PRN Reason: edema Rivaroxaban [Xarelto] 20 mg PO DAILY Memantine HCl 10 mg PO BID Levothyroxine Sodium [Levothyroxine] 125 mcg PO DAILY Escitalopram Oxalate 20 mg PO DAILY Amiodarone HCl 100 mg PO DAILY Famotidine 20 mg PO DAILY Donepezil HCl [Aricept] 5 mg PO DAILY Follow up with: AMY ROD [Primary Care Provider] -
[2022-05-19 09:06] LABS: ANION GAP 7.4 MEQ/L (5-15); BLOOD UREA NITROGEN 11 mg/dL (7-17); CHLORIDE 109 mmol/L (98-107); Calcium 8.1 mg/dL (8.4-10.2); Carbon Dioxide 24 mmol/L (22-30); Creatinine 1 0.72 mg/dL (0.52-1.04); EST GLOMERULAR FILTRATION RATE > 60.0 ML/MIN; Glucose 98 mg/dL (74-106); Potassium 3.7 mmol/L (3.5-5.1); SODIUM 137 mmol/L (137-145)
[2022-05-19] MEDS ORDERED: NON-FORMULARY ITEM (Amiodarone Hcl [Amiodarone Hcl] 100 MG Tablet) PO SCH (10:00)
[2022-05-19] MEDS ORDERED: NON-FORMULARY ITEM (Escitalopram Oxalate [Escitalopram Oxalate] 20 MG Tablet) PO SCH (10:00)
[2022-05-19] MEDS ORDERED: NON-FORMULARY ITEM (Donepezil Hcl [Aricept] 5 MG Tablet) PO SCH (10:00)
[2022-05-19] MEDS ORDERED: NON-FORMULARY ITEM (Rivaroxaban [Xarelto] 20 MG Tablet) PO SCH (10:00)
[2022-05-19] MEDS ORDERED: LEVOTHYROXINE SODIUM 125 MCG PO SCH (10:00)
[2022-05-19] MEDS: Aricept 10 MG PO SCH (10:22)
[2022-05-19] MEDS: Cordarone 200 MG PO SCH (10:22)
[2022-05-19] MEDS: Namenda 5 MG PO SCH (10:23)
[2022-05-19] MEDS: COREG 12.5 MG PO SCH (10:23)
[2022-05-19] MEDS: Lexapro PO SCH (10:23)
[2022-05-19] MEDS: Pepcid 20 MG PO SCH (10:23)
[2022-05-19] MEDS: SYNTHROID 125 MCG PO SCH (10:24)
[2022-05-19] MEDS: XARELTO 10 MG TABLET PO SCH (10:24)
== END 2022-05-19 11:20 | disposition home health service (06) ==
LOC: ED 18:34 → MED SURG 05-18 00:36
PROVIDERS: ADMIT Family Medicine; ATTEND Family Medicine
DX: G45.9 Transient cerebral ischemic attack, unspecified (principal); R53.1 Weakness; R29.6 Repeated falls; I10 Essential (primary) hypertension; E03.9 Hypothyroidism, unspecified; S06.9X9A Unspecified intracranial injury with loss of consciousness of unspecified duration, initial encounter; Z79.899 Other long term (current) drug therapy; Z20.828 Contact with and (suspected) exposure to other viral communicable diseases; Z87.820 Personal history of traumatic brain injury
CPT/HCPCS: 0241U; 36000; 36415; 51702; 70450; 70553; 80048; 80053; 80061; 81015; 83721; 83735; 84443; 84484; 85025; 92523; 93005; 94760; 97161; 99285; 93268; A9270-GY; G0378

== ENCOUNTER 2022-08-10 16:49 | Emergency (ER) | payer MEDICARE ==
--- NOTE | 2022-08-10 17:44 | ERPHSYRPT ---
- History of Present Illness Time Seen by Provider: 08/10/22 16:55 Source: patient Exam Limitations: no limitations Patient Subjective Stated Complaint: Pt dropped a can of hairspray on her right big toe at the bottom knuckle this morning and now has extreme pain on movement and it is bruised Triage Nursing Assessment: Pt brought to the ER by EMS, hypertensive, rates pain as 10/10, right big toe is bruised at the bottom knuckle where a can of h airspray fell on it this morning, pt states that she can't walk due to the pain and had just sat most of the day and so she didn't realize the pain she was in, pulses normal, cap refill normal, skin n/w/d Physician History: Patient is a 81-year-old female presents to our ED for evaluation of pain to her right great toe. Patient dropped a can of hairspray on her great toe this morning. Patient took 400 mg ibuprofen at that time. Pain improved. Patient later got up to walk and felt significant pain. Patient became concerned of possible fracture. She called 911. Patient arrived to our ED via EMS. No other injuries reported. Pain described as an ache that is localized. No radiation. Pain worse with movement and palpation. Pain improved with rest. Patient has no other complaints or concerns at this time. Patient declined pain medication. Portions of this note were created with voice recognition technology. There may be grammatical, spelling, punctuation or sound alike errors Method of Injury: direct blow Occurred: this morning Quality: constant Severity of Pain-Max: moderate Severity of Pain-Current: mild Lower Extremities Pain: 1st toe: right Modifying Factors: Improves With: movement Associated Symptoms: none Allergies/Adverse Reactions: Penicillins Allergy (Verified 08/10/22 17:05) Home Medications: Amiodarone HCl 100 mg PO DAILY 05/17/22 [History] Carvedilol 12.5 mg [Coreg 12.5 mg] 12.5 mg PO BID 05/17/22 [History] Escitalopram Oxalate 20 mg PO DAILY 05/17/22 [History] Furosemide 20 mg [Lasix 20 mg] 20 mg PO DAILY PRN PRN 05/17/22 [History] Levothyroxine Sodium [Levothyroxine] 125 mcg PO DAILY 05/17/22 [History] Memantine HCl 10 mg PO BID 05/17/22 [History] Rivaroxaban [Xarelto] 20 mg PO DAILY 05/17/22 [History] Donepezil HCl [Aricept] 10 mg PO DAILY 05/18/22 [History] Famotidine 20 mg PO DAILY 05/18/22 [History] Hx Tetanus, Diphtheria Vaccination/Date Given: Yes Hx Influenza Vaccination/Date Given: No Hx Pneumococcal Vaccination/Date Given: No Travel Risk - International Travel Have you traveled outside of the country in past 3 weeks: No - Coronavirus Screening Are you exhibiting any of the following symptoms?: No Close contact with a COVID-19 positive Pt in past 14-21 Days: No - Vaccine Status Have you recieved a Covid-19 vaccination: Yes Inspector Cold Working: Moderna - Vaccination Dates Date of 2cond Vaccination (if applicable): na - Review of Systems Constitutional: No Symptoms, No Fever, No Chills Eyes: No Symptoms Ears, Nose, & Throat: No Symptoms Respiratory: No Symptoms, No Cough, No Dyspnea Cardiac: No Symptoms, No Chest Pain, No Edema, No Syncope Abdominal/Gastrointestinal: No Symptoms, No Abdominal Pain, No Nausea, No Vomiting, No Diarrhea Genitourinary Symptoms: No Symptoms, No Dysuria Musculoskeletal: No Symptoms, No Back Pain, No Neck Pain Skin: No Symptoms, No Rash Neurological: No Symptoms, No Dizziness, No Focal Weakness, No Sensory Changes Psychological: No Symptoms Endocrine: No Symptoms Hematologic/Lymphatic: No Symptoms Immunological/Allergic: No Symptoms All Other Systems: Reviewed and Negative - Past Medical History Pertinent Past Medical History: Yes Neurological History: Alzheimer's Disease, Dementia, Other ENT History: No Pertinent History Cardiac History: Arrhythmia, Deep Vein Thrombosis, Hypertension Respiratory History: No Pertinent History Endocrine Medical History: Hypothyroidism Musculoskeletal History: Fractures GI Medical History: No Pertinent History History: No Pertinent History Psycho-Social History: No Pertinent History Female Reproductive Disorders: No Pertinent History Other Medical History: 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 Right leg - Social History Smoking Status: Never smoker Exposure to second hand smoke: No Drug Use: none Patient Lives Alone: No - Nursing Vital Signs Nursing Vital Signs: Initial Vital Signs Temperature 97.5 F 08/10/22 16:51 Pulse Rate 59 L 08/10/22 16:51 Blood Pressure 153/75 08/10/22 16:51 O2 Sat by Pulse Oximetry 99 08/10/22 16:51 Pain Scale Pain Intensity 10 - Physical Exam General Appearance: no apparent distress, alert Eyes, Ears, Nose, Throat Exam: normal ENT inspection, TMs normal, pharynx normal, moist mucous membranes Neck Exam: non-tender, supple Cardiovascular/Respiratory Exam: chest non-tender, normal breath sounds, regular rate/rhythm, no respiratory distress Gastrointestinal/Abdominal Exam: non-tender, guarding Back Exam: normal inspection, No vertebral tenderness Hips Exam: bilateral: non-tender, normal inspection, normal range of motion, no evidence of injury Legs Exam: bilateral leg: non-tender, normal inspection, normal range of motion, no evidence of injury Knees Exam: bilateral knee: non-tender, normal inspection, normal range of motion, no evidence of injury Ankle Exam: bilateral ankle: non-tender, normal inspection, normal range of motion, no evidence of injury Foot Exam: bilateral foot: non-tender, normal inspection, normal range of motion, no evidence of injury, other (Some swelling and bruising of the right great toe. No deformity) Neuro/Tendon Exam: normal sensation, normal motor functions Mental Status Exam: alert, oriented x 3, cooperative Skin Exam: normal color, warm, dry SpO2 Interpretation: normal SpO2: 99 O2 Delivery: Room Air - Course Nursing assessment & vital signs reviewed: Yes - Radiology Exams Foot X-ray Interpretation: Interpreted by me (Arthritic changes, osteopenia, no fracture dislocations. No soft tissue abnormalities.) Ordered Tests: Active Orders 24 hr Category Date Time Status FOOT (MINIMUM 3 VIEWS) Stat Exams 08/10/22 16:53 Taken - Progress Progress: improved Progress Note: 08/10/22 17:53 Patient is an 81-year-old female presents to our ED for evaluation of pain to her right great toe. Patient dropped a hairspray can on her big toe and approximately 8 this morning. Patient took 400 mg of ibuprofen. She felt well. However later on in the day patient got up to walk and stated she experienced sniffing and pain. Patient became concerned of possible toe fracture. Patient arrived to our ED via EMS. Physical exam reveals bruising to the right toe. Patient's complaint is acute. Complex of the complaint is mild. No comorbidities to contribute the patient's current symptoms. X-ray of the right foot and great toe are ordered. X-ray reveals no fracture however there is some osteopenia and degenerative changes. No soft tissue abnormalities. Patient declined pain medication. Patient states "I have pain medication at home". Patient agrees to follow-up with primary care doctor within 48 hours for reevaluation. Level of EM service provided was straightforward. Complexity of problems addressed as minimal. I personally reviewed the x-ray. The data reviewed was moderate. No fractures or dislocations. Patient was given a orthopedic shoe. Risk of complication and/or risk of morbidity/mortality of patient management is minimal. No critical care time. Patient served as an independent historian. Patient is resting comfortably. No active pain. Portions of this note were created with voice recognition technology. There may be grammatical, spelling, punctuation or sound alike errors Counseled pt/family regarding: diagnosis, need for follow-up, rad results - Departure Departure Disposition: Home Clinical Impression: Toe contusion Condition: Stable Critical Care Time: No Referrals: AMY ROD [Primary Care Provider] - Follow up/PCP as directed Additional Instructions: Discharge/Care Plan MATTEO SUAREZ DARCYMirna was seen on 08/10/22 in the Emergency Room. The patient was counseled regarding Diagnosis,Lab results, Imaging studies, need for follow up and when to return to the Emergency Room. Prescriptions given: Discharge Note I have spoken with the patient and/or caregivers. I have explained the patient's condition, diagnosis and treatment plan based on the information available to me at this time. I have answered the patient's and/or caregiver's questions and addressed any concerns. The patient and/or caregivers have as good understanding of the patient's diagnosis, condition and treatment plan as can be expected at this point. The vital signs have been stable. The patient's condition is stable and appropriate for discharge from the emergency department. The patient will pursue further outpatient evaluation with the primary care physician or other designated or consulting physician as outlined in the discharge instructions. The patient and/or caregivers are agreeable to this plan of care and follow-up instructions have been explained in detail. The patient and/or caregivers have received these instruction. The patient/and or caregivers are aware that any significant change in condition or worsening of symptoms should prompt an immediate return to this or the closest emergency department or call 911.
[2022-08-10 18:24] VITALS: BP 108/70; PULSE 56; O2SAT 96
--- NOTE | 2022-08-11 08:52 | XRAY ---
Indication: Great toe pain following injury. Comparison: None 3 nonweightbearing views right foot demonstrates osteopenia, mild 1st MTP degenerative changes, old bimalleolar fractures with intact hardware, and small navicular accessory ossicle. No other bony, articular, or soft tissue abnormalities.
== END 2022-08-10 18:31 | disposition home or self-care (01) ==
LOC: ED 16:49
DX: S90.111A Contusion of right great toe without damage to nail, initial encounter (principal); W20.8XXA Other cause of strike by thrown, projected or falling object, initial encounter; I10 Essential (primary) hypertension; Z79.01 Long term (current) use of anticoagulants; Z79.899 Other long term (current) drug therapy
CPT/HCPCS: 73630; 99283